=== PATIENT | male | born 1955 | race Two or more races ===

== ENCOUNTER 2024-04-14 14:08 | Inpatient (IN) | payer OTHER ==
[~2024-04-14] VITALS: Ht 177.8 cm; Wt 86.3 kg
[2024-04-14 14:10] VITALS: BP 115/78; RESP 16; O2SAT 99
[2024-04-14 15:00] LABS: Basophils # (auto) 0.1 10 ^3/uL (0-0.2); Basophils % (auto) 0.4 % (0.0-2.0); Eosinophils # (auto) 0.6 10 ^3/uL (0-0.8); Eosinophils % (auto) 3.8 % (0.0-7.0); Hematocrit 44.2 % (41.0-53.0); Hemoglobin 14.5 g/dL (13.5-17.5); Lymphocytes # (auto) 1.6 10 ^3/uL (0.4-5.4); Lymphocytes % (auto) 10.2 % (10.0-50.0); Mean Corpuscular Hemoglobin 28.9 pg (28.0-32.0); Mean Corpuscular Hgb Conc. 32.8 g/dL (32.0-36.0); Mean Corpuscular Volume 88.1 fL (80.0-100.0); Monocytes # (auto) 1.3 10 ^3/uL (0-1.3); Monocytes % (auto) 7.7 % (0.0-12.0); Neutrophils # (auto) 12.6 10 ^3/uL (1.6-8.6); Neutrophils % (auto) 77.9 % (37.0-80.0); Red Blood Cells 5.02 10^6/uL (4.5-5.90); Red Cell Distribution Width 15.3 % (11.8-14.3); White Blood Cell 16.2 10^3/uL (4.4-10.8)
[2024-04-14] MEDS ORDERED: traMADol HCL 50 MG TAB PO ONE (15:00)
[2024-04-14] MEDS ORDERED: METOCLOPRAMIDE HCL 5MG/ml INJ 2ml VIAL IV ONE (15:00)
[2024-04-14 15:15] VITALS: PULSE 71
[2024-04-14 15:17] LABS: Alanine Aminotransferase 17 U/L (7-40); Alkaline Phosphatase 107 U/L (46-116); Anion Gap 4 (5-15); Aspartate Aminotransferase 18 U/L (13-40); BUN/Creatinine Ratio 12.4 (10.0-20.0); Blood Urea Nitrogen 32 mg/dL (9-23); Calcium 10.3 mg/dL (8.5-10.1); Carbon Dioxide 24 mmol/L (20-30); Chloride 105 mmol/L (98-107); Glucose 165 mg/dL (74-106); Potassium 5.1 mmol/L (3.5-5.1); Sodium 133 mmol/L (136-145)
[2024-04-14 15:18] LABS: Bilirubin, Total 1.9 mg/dL (0.2-1.0); Total Protein 6.8 g/dL (5.7-8.2)
[2024-04-14] MEDS ORDERED: cefTRIAXone 2GM/50ML D5W 50 ML IV ONE (17:30)
[2024-04-14] MEDS ORDERED: AZITHROMYCIN 500MG/ 250ML 250 ML IV ONE (17:30)
[2024-04-14] MEDS ORDERED: DOCUSATE SOD 100 MG CAP PO PRN (23:15)
[2024-04-14] MEDS ORDERED: ACETAMINOPHEN 325 MG TAB PO PRN (23:15)
[2024-04-14] MEDS ORDERED: NITROGLYCERIN 0.4 MG SL TAB SL PRN (23:15)
[2024-04-14] MEDS ORDERED: ONDANSETRON HCL 4 MG/2 ML VIAL IV PRN (23:15)
[2024-04-14] MEDS ORDERED: MORPHINE SULFATE INJ 2 MG/ml SYRG IV PRN ×2 (23:15)
[2024-04-14] MEDS ORDERED: HYDROcodone-ACET 5/325MG TAB PO PRN (23:15)
[2024-04-14] MEDS ORDERED: SODIUM CHLORIDE 0.9% 1,000 ML IV SCH (23:15)
[2024-04-15] MEDS ORDERED: PIPERACILLIN-TAZOB 3.375GM 100 ML IV SCH (06:00)
[2024-04-15] MEDS ORDERED: ZINC SULFATE 220mg CAP or TAB PO SCH (10:00)
[2024-04-15] MEDS ORDERED: ENOXAPARIN SOD 30 MG/0.3 ML SYRINGE SC SCH (10:00)
[2024-04-15] MEDS ORDERED: MULTIPLE VITAMIN TAB PO SCH (10:00)
[2024-04-15] MEDS ORDERED: ASCORBIC ACID 500 MG TAB PO SCH (10:00)
== END 2024-04-15 04:41 | disposition left against medical advice (07) | DRG 640 ==
LOC: EDBD 14:08 → ER 14:08 → TELE 23:07
PROVIDERS: ADMIT Nurse Practitioner Family; ATTEND Nurse Practitioner Family
DX: E86.0 Dehydration (principal); N17.0 Acute kidney failure with tubular necrosis; J90 Pleural effusion, not elsewhere classified; I10 Essential (primary) hypertension; Z53.29 Procedure and treatment not carried out because of patient's decision for other reasons; S09.90XA Unspecified injury of head, initial encounter; S93.601A Unspecified sprain of right foot, initial encounter; R26.9 Unspecified abnormalities of gait and mobility; Z79.899 Other long term (current) drug therapy; Z85.46 Personal history of malignant neoplasm of prostate; W01.0XXA Fall on same level from slipping, tripping and stumbling without subsequent striking against object, initial encounter; Y93.89 Activity, other specified; Y92.091 Bathroom in other non-institutional residence as the place of occurrence of the external cause; Y99.8 Other external cause status
CPT/HCPCS: 36415; 70450; 70486; 71250; 72125; 73060; 73630; 74176; 80053; 83880; 84484; 85025; 93005; G0378

== ENCOUNTER 2024-04-29 16:59 | Inpatient (IN) | payer OTHER ==
[~2024-04-29] VITALS: Ht 177.8 cm; Wt 92.4 kg
[2024-04-29 18:22] LABS: Basophils # (auto) 0.1 10 ^3/uL (0-0.2); Basophils % (auto) 0.6 % (0.0-2.0); Eosinophils # (auto) 0 10 ^3/uL (0-0.8); Eosinophils % (auto) 0.3 % (0.0-7.0); Hematocrit 48.5 % (41.0-53.0); Hemoglobin 15.5 g/dL (13.5-17.5); Lymphocytes # (auto) 1.1 10 ^3/uL (0.4-5.4); Mean Corpuscular Hemoglobin 28.4 pg (28.0-32.0); Mean Corpuscular Hgb Conc. 32.1 g/dL (32.0-36.0); Mean Corpuscular Volume 88.5 fL (80.0-100.0); Monocytes # (auto) 0.4 10 ^3/uL (0-1.3); Monocytes % (auto) 3.5 % (0.0-12.0); Neutrophils # (auto) 9.7 10 ^3/uL (1.6-8.6); Neutrophils % (auto) 85.6 % (37.0-80.0); Red Blood Cells 5.47 10^6/uL (4.5-5.90); Red Cell Distribution Width 14.9 % (11.8-14.3); White Blood Cell 11.4 10^3/uL (4.4-10.8)
[2024-04-29] MEDS: SODIUM CHLORIDE 0.9% 1,000 ML IV ONE (18:27)
[2024-04-29] MEDS: KETOROLAC TROMETH 30 MG/ML 1ML VIAL IV ONE (18:27)
[2024-04-29 18:40] LABS: Alanine Aminotransferase 27 U/L (7-40); Albumin 3.9 g/dL (3.2-4.8); Alkaline Phosphatase 101 U/L (46-116); Anion Gap 6 (5-15); Aspartate Aminotransferase 12 U/L (13-40); BUN/Creatinine Ratio 11.4 (10.0-20.0); Bilirubin, Total 1.1 mg/dL (0.2-1.0); Blood Urea Nitrogen 27 mg/dL (9-23); Calcium 10.9 mg/dL (8.7-10.4); Carbon Dioxide 20 mmol/L (20-30); Chloride 109 mmol/L (98-107); Glucose 129 mg/dL (74-106); Magnesium 1.8 mg/dL (1.6-2.6); Potassium 5.3 mmol/L (3.5-5.1); Sodium 135 mmol/L (136-145); Total Protein 7.3 g/dL (5.7-8.2)
[2024-04-29] MEDS ORDERED: NITROGLYCERIN 0.4 MG SL TAB SL PRN (19:30)
[2024-04-29] MEDS ORDERED: HYDROcodone-ACET 5/325MG TAB PO PRN (19:30)
[2024-04-29] MEDS ORDERED: DOCUSATE SOD 100 MG CAP PO PRN (19:30)
[2024-04-29] MEDS ORDERED: MORPHINE SULFATE INJ 2 MG/ml SYRG IV PRN (19:30)
[2024-04-29 19:45] VITALS: PULSE 66; RESP 18; O2SAT 96
[2024-04-29] MEDS: SODIUM CHLORIDE 0.9% 2,000 ML IV ONE (20:30)
[2024-04-29] MEDS: SODIUM CHLORIDE 0.9% 1,000 ML IV SCH (21:12)
[2024-04-29] MEDS: FAMOTIDINE (10MG/ML) 2ML VL IV ONE (22:18)
[2024-04-29] MEDS: ASCORBIC ACID 500 MG TAB PO SCH (22:18)
[2024-04-30 01:43] VITALS: BP 135/80; PULSE 64; RESP 18; TEMP 98; O2SAT 97
[2024-04-30 01:45] VITALS: BP 135/80; PULSE 64; RESP 18; TEMP 98; O2SAT 97
[2024-04-30] MEDS ORDERED: TAMS0.4C36 PO (01:49)
[2024-04-30] MEDS ORDERED: ALLO100T PO (01:49)
[2024-04-30] MEDS ORDERED: GABA800T97 PO (01:49)
[2024-04-30 05:00] VITALS: BP 105/56; PULSE 56; RESP 20; TEMP 97.9; O2SAT 96
[2024-04-30 05:50] LABS: Basophils # (auto) 0.1 10 ^3/uL (0-0.2); Basophils % (auto) 0.6 % (0.0-2.0); Eosinophils # (auto) 0.3 10 ^3/uL (0-0.8); Hematocrit 44.4 % (41.0-53.0); Hemoglobin 14.5 g/dL (13.5-17.5); Lymphocytes # (auto) 2.2 10 ^3/uL (0.4-5.4); Mean Corpuscular Hemoglobin 28.9 pg (28.0-32.0); Mean Corpuscular Hgb Conc. 32.6 g/dL (32.0-36.0); Mean Corpuscular Volume 88.5 fL (80.0-100.0); Monocytes % (auto) 7.8 % (0.0-12.0); Neutrophils # (auto) 9.4 10 ^3/uL (1.6-8.6); Neutrophils % (auto) 72.6 % (37.0-80.0); Red Blood Cells 5.01 10^6/uL (4.5-5.90); Red Cell Distribution Width 14.9 % (11.8-14.3)
[2024-04-30 06:37] LABS: Alanine Aminotransferase 21 U/L (7-40); Alkaline Phosphatase 87 U/L (46-116); Anion Gap 4 (5-15); Blood Urea Nitrogen 33 mg/dL (9-23); Calcium 9.5 mg/dL (8.5-10.1); Carbon Dioxide 23 mmol/L (20-30); Chloride 111 mmol/L (98-107); Glucose 87 mg/dL (74-106); Potassium 5.3 mmol/L (3.5-5.1); Sodium 138 mmol/L (136-145)
[2024-04-30 06:38] LABS: Albumin 3.3 g/dL (3.2-4.8); Aspartate Aminotransferase 11 U/L (13-40)
[2024-04-30 06:39] LABS: Bilirubin, Total 0.5 mg/dL (0.2-1.0); Total Protein 5.9 g/dL (5.7-8.2)
[2024-04-30] MEDS: ACETAMINOPHEN 325 MG TAB PO PRN (08:00)
[2024-04-30 08:16] VITALS: PULSE 59; PULSE 83
[2024-04-30] MEDS: MULTIPLE VITAMIN TAB PO SCH (08:59)
[2024-04-30] MEDS: FAMOTIDINE (10MG/ML) 2ML VL IV SCH (08:59)
[2024-04-30] MEDS: ZINC SULFATE 220mg CAP or TAB PO SCH (08:59)
[2024-04-30 09:00] VITALS: BP 136/93; PULSE 75; RESP 14; TEMP 97.5; O2SAT 96
[2024-04-30] MEDS: LOPERAMIDE HCL 2 MG CAP/TAB PO PRN (11:14)
== END 2024-04-30 11:40 | disposition left against medical advice (07) | DRG 640 ==
LOC: ER 16:59 → TELE 19:20 → TELE-WESTW 04-30 01:37
PROVIDERS: ADMIT Internal Medicine; ATTEND Internal Medicine
DX: E86.0 Dehydration (principal); N17.0 Acute kidney failure with tubular necrosis; I95.9 Hypotension, unspecified; I10 Essential (primary) hypertension; R00.0 Tachycardia, unspecified; R19.7 Diarrhea, unspecified; Z53.29 Procedure and treatment not carried out because of patient's decision for other reasons; G89.29 Other chronic pain; M54.9 Dorsalgia, unspecified; Z88.5 Allergy status to narcotic agent; Z83.3 Family history of diabetes mellitus
CPT/HCPCS: 36415; 71045; 80053; 83735; 84484; 85025; 93005; G0378; J1885; J3490